=== PATIENT | female | born 1960 | race African-American/Black ===

== ENCOUNTER 2019-11-20 22:22 | Emergency (ER) | payer BC, OTHER ==
[~2019-11-20] VITALS: Ht 157.5 cm; Wt 55.0 kg
[~2019-11-20 22:22] MED LIST: AMLODIPINE; ASPI-1158; HYDR25TA; NAPROXEN
[2019-11-20 23:18] LABS: BASOPHILS % 1.4 % (0.0-2.0); EOSINOPHILS % 3.2 % (0.0-5.0); HEMATOCRIT. 36.8 % (36.0-48.0); HEMOGLOBIN. 12.5 g/dL (12.0-16.0); LYMPHOCYTES % 29.2 % (20.0-50.0); MEAN CORPUSCULAR HEMOGLOBIN 31.4 pg (28.0-32.0); MEAN CORPUSCULAR VOLUME 92.2 fL (81.0-99.0); MEAN PLATELET VOLUME 9.3 fl (7.4-10.4); MONOCYTES % 14.4 % (2.0-8.0); NEUTROPHILS % 51.8 % (40.0-76.0); PLATELET 239 x1000/uL (130-400); RED BLOOD CELL COUNT 3.99 mill/uL (4.2-5.4)
[2019-11-20 23:22] LABS: CHLORIDE 108 mEq/L (98-107)
[2019-11-21 00:13] VITALS: BP 131/79
== END 2019-11-21 00:14 | disposition home or self-care (01) ==
LOC: ER 22:22
DX: R07.89 Other chest pain (principal); Z79.899 Other long term (current) drug therapy
CPT/HCPCS: 36415; 71045; 80053; 84484; 85025; 93005; 99285